=== PATIENT | female | born 1945 ===

== ENCOUNTER 2024-05-25 02:04 | Outpatient (RCR) | payer MEDICARE, SELFPAY ==
[2024-05-25 13:19] LABS: Abs Immature Grans 0.03 10^3/uL (0.0-0.06); Absolute Basophil Count 0.02 10^3/uL (0.0-0.2); Absolute Eosinophil Count 0.28 10^3/uL (0.0-0.7); Absolute Lymphocyte Count 0.82 10^3/uL (1.2-3.4); Absolute Neutrophil Count 5.88 10^3/uL (1.2-6.7); Basophils % 0.3 %; Eosinophils % 3.7 %; HCT 32.4 % (36.0-46.0); HGB 10.8 g/dL (11.2-15.7); Immature Grans % 0.4 %; Lymphocytes % 10.9 %; MCH 30.8 pg (27.0-33.0); MCHC 33.3 % (32.0-36.0); MCV 92 fL (80-95); MPV 10.4 fL (8.0-11.0); Monocytes % 6.6 %; Neutrophils % 78.1 %; Platelet Count 221 10^3/uL (130-400); RBC 3.51 10^6/uL (3.93-5.22); RDW 12.7 % (11.7-14.6); RDW-SD 43.1 fL; WBC 7.53 10^3/uL (4.4-10.8)
[2024-05-25 13:45] LABS: ALT 17 U/L (14-59); AST 19 U/L (15-37); Albumin 3.4 g/dL (3.4-5.0); Alkaline Phosphatase 80 U/L (46-116); Anion Gap 6.4 mmol/L (3-11); BUN 11 mg/dL (7-18); Bilirubin, Total 0.24 mg/dL (0.2-1.0); CO2 25.6 mmol/L (21.0-32.0); CREATININE 1.5 mg/dL (0.55-1.02); Calcium 8.6 mg/dL (8.5-10.1); Chloride 106 mmol/L (98-107); Estimated GFR 35.89 (mL/min/1.73m2); Glucose 106 mg/dL (74-106); Sodium 138 mmol/L (136-145); Total Protein 7.3 g/dL (6.4-8.2)
[2024-05-25] MEDS: Heparin 500 UNITS/5 ML SYRINGE IV (14:11)
[2024-05-25] MEDS: Normal Saline Flush 10 ML SYR IVP (14:11)
== END 2024-06-18 23:59 | disposition home or self-care (01) ==
LOC: INF 02:04
PROVIDERS: PCP Family Medicine; Visit Provider Family Medicine
DX: I11.0 Hypertensive heart disease with heart failure (principal)
CPT/HCPCS: 36591; 80053; 85025; J1642

== ENCOUNTER 2024-06-29 08:16 | Outpatient (CLI) | payer MEDICARE, SELFPAY ==
--- NOTE | 2024-06-29 08:15 | RT.EKG_ITS ---
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
== END 2024-06-29 08:17 | disposition home or self-care (01) ==
LOC: DI.CARD 08:17
PROVIDERS: PCP Family Medicine; Visit Provider Internal Medicine Cardiovascular Disease
DX: Z95.810 Presence of automatic (implantable) cardiac defibrillator (principal); I42.0 Dilated cardiomyopathy
CPT/HCPCS: 93010

== ENCOUNTER → 2024-06-29 11:09 | Outpatient (BNVA) | payer MEDICARE, SELFPAY | PROVIDERS: PCP Family Medicine; Referring Provider Family Medicine; Visit Provider Internal Medicine Cardiovascular Disease | DX: I42.0 Dilated cardiomyopathy (principal); Z95.810 Presence of automatic (implantable) cardiac defibrillator | CPT/HCPCS: 93005; 99203 ==

== ENCOUNTER 2024-08-17 01:34 | Outpatient (RCR) | payer MEDICARE, SELFPAY ==
[2024-08-17] MEDS: Normal Saline Flush 10 ML SYR IVP (12:55)
[2024-08-17] MEDS: Heparin 500 UNITS/5 ML SYRINGE IV (13:00)
== END 2024-09-15 23:59 | disposition home or self-care (01) ==
LOC: INF 01:34
PROVIDERS: PCP Family Medicine; Visit Provider Family Medicine
DX: Z45.2 Encounter for adjustment and management of vascular access device (principal)
CPT/HCPCS: 96523; J1642

== ENCOUNTER 2024-09-07 01:47 | Outpatient (CLI) | payer MEDICARE, SELFPAY ==
--- NOTE | 2024-09-07 12:30 | DI.US_ITS ---
APPROVED REPORT EXAM: Comprehensive 2D, Doppler, and color-flow Echocardiogram Patient Location: Out-Patient Thermocouple Tester: Volodymyr Morales RDCS (AE) Indications: Check LV function and MV regurgitation, dilated DENTAL TECH Other Information Study Quality: Adequate Conclusion Mildly dilated left ventricle. Ejection fraction is 30 to 35%. There is global hypokinesis Normal right ventricular size and function Both atria are enlarged Device lead noted in the right heart Trileaflet aortic valve without stenosis or regurgitation Prior mitral valve repair. Residual moderate eccentric mitral regurgitation Mild tricuspid regurgitation. Estimated right ventricular systolic pressure is 61 mmHg Wall motion Left Ventricle Left ventricle is mildly dilated. Left ventricular systolic function is moderately decreased. There i s normal left ventricular wall thickness. There is global hypokinesis of the left ventricle. There is no ventricular septal defect visualized. LVEF is 30-35%. Right Ventricle The right ventricle is normal size. Device lead is present in the right ventricle. Atria Left atrium is moderately dilated. Right atrium is mildly dilated. The interatrial septum is intact w ith no evidence for an atrial septal defect. Aortic Valve The aortic valve is normal in structure. Aortic valve is trileaflet. There is no aortic valvular sten osis. No aortic regurgitation is present. Mitral Valve Status post mitral valve repair. Moderate mitral regurgitation. Tricuspid Valve The tricuspid valve is normal in structure. There is no tricuspid valve stenosis. Mild tricuspid regu rgitation. Pulmonic Valve The pulmonary valve is normal in structure. There is no pulmonic valvular stenosis. Mild pulmonic reg urgitation. Great Vessels The aortic root is normal in size. The ascending aorta is normal in size. Aortic arch is normal in ca liber. IVC is normal in size and collapses >50% with inspiration. Pericardium There is no pericardial effusion. 2D Dimensions IVSD d PLAX 0.89 cm F: 0.6-1.0 Ao Root d 2.63 cm F: 2.7 - 3.3 LVPW d PLAX 0.85 cm F: 0.6 - 1.0 Ao Asc Diam d 2.84 cm F: 2.3 - 3.1 LVID d PLAX 5.37 cm F: 3.8 - 5.2 LVDs 4.45 cm F: 2.2 - 3.5 LV EF Teichholz 35.2 % FS 16.97 % LV EDV (Teich) 139.2 mL LV ESV (Teich) 90.3 mL Stroke Vol Index (Teich) 29.31 M-Mode TAPSE 2.06 cm (M/F) >1.7 Auto EF LV EDV A4C 108.8 mL LV EDV A2C 106.9 mL LV EDV BP 108.1 mL LV ESV A4C 76.1 mL LV ESV A2C 69.5 mL LV ESV BP 72.7 mL LVEF(%) A4C 30.0 % LVEF(%) A2C 34.9 % LVEF(%) BP 32.7 % LV SV A4C 32.6 ml LV SV A2C 37.3 ml LV SV BP 35.3 ml LV CO A4C 3.1 L/min LV CO A2C 3.4 L/min LV CO BP 3.3 L/min HR A4C 94.95 BPM HR A2C 91.15 BPM LV EDV Index (BP) LA Volume LA Length A4C 5.6 cm LA Length A2C 5.1 cm LA Area A4C s 17.32 cm2 LA Area A2C s 18.40 cm2 LA Vol A4C A-L 45.49 mL LA Vol A2C A-L 56.47 mL LA Vol Biplane A-L 53.2 mL LA Vol/BSA A4C A-L LA Vol/BSA A2C A-L LA Vol/BSA BP A-L 31.8 mL/m2 LA Vol A4C MOD 44.6 mL LA Vol A2C MOD 54.9 mL LA Vol BP MOD 51.4 mL RA Volume RA Area A4C 11.9 cm2 RA ESV A4C (A-L) 24.7mL RA Vol/BSA A4C A-L RA Length A4C 4.9 cm RA ESV A4C (MOD) 23.6mL LV Diastology MV E' medial 0.028 (>0.07 m/s) MV E Vmax 0.32 (0.4-1.3 m/s) MV E/E' MED 11.35 (<14) MV A Vmax 1.55 (0.4-1.3 m/s) MV E' lateral 0.066 (>0.1 m/s) E/A Ratio 0.2 MV E/E' LAT 4.89 (<14) MV E' Average 0.047 m/s MV E/E'(average) 6.84 Aortic Valve AoV Vmax 1.18 m/s LVOT Vmax 0.91 m/s AoV Peak Grad 5.6 mmHg LVOT Peak Grad 3.3 mmHg AoV Area (Vmax) 1.91 cm2 LVOT VTI 0.203 m AoV VTI 0.238 m LVOT Mean Grad 1.5 mmHg AoV Mean Son. 0.80 m/s LVOT SV 50.32 mL AoV Mean Grad 2.9 mmHg LVOT Diam s 1.75 cm AoV Area (VTI) 2.12 cm2 AV Regurg Peak Gr. 5.60 mmHg Velocity Ratio 0.77 Mitral Valve MV DT 100 (160-240 msec) MR Vmax 5.37 m/s MV Vmax TIPS 1.64 m/s MR VTI 1.677 m MV Mean Grad 5.4 (<2mmHg) MR Peak Grad 115.1 mmHg MV VTI 0.354 m MR Mean Grad 74.3 mmHg MR PISA Radius 0.55 cm MR Aliasing Velocity 0.30 m/s Tricuspid Valve RA Pressure 3.00 mmHg TR Vmax 3.82 m/s TV S' 0.11 m/s TR Peak Grad 58.4 mmHg RVSP (TR) 61.4 mmHg
== END 2024-09-07 02:07 ==
LOC: DI 01:47
PROVIDERS: PCP Family Medicine; Visit Provider Internal Medicine Cardiovascular Disease
DX: I42.0 Dilated cardiomyopathy (principal); I08.2 Rheumatic disorders of both aortic and tricuspid valves
CPT/HCPCS: 93306

== ENCOUNTER → 2024-10-12 10:12 | Outpatient (BNVA) | payer MEDICARE, SELFPAY | PROVIDERS: PCP Family Medicine; Referring Provider Family Medicine; Visit Provider Internal Medicine Cardiovascular Disease | DX: Z95.810 Presence of automatic (implantable) cardiac defibrillator (principal); I42.0 Dilated cardiomyopathy | CPT/HCPCS: 99213 ==

== ENCOUNTER 2024-11-16 03:29 | Outpatient (RCR) | payer MEDICARE, SELFPAY ==
[2024-11-16] MEDS: Normal Saline Flush 10 ML SYR IVP (12:58)
== END 2024-12-16 23:59 | disposition home or self-care (01) ==
LOC: INF 03:29
PROVIDERS: PCP Family Medicine; Visit Provider Family Medicine
DX: N18.32 Chronic kidney disease, stage 3b (principal); Z45.2 Encounter for adjustment and management of vascular access device
CPT/HCPCS: 96523

== ENCOUNTER 2024-12-07 19:52 | Outpatient (REF) | payer MEDICARE, SELFPAY ==
[2024-12-07 15:48] LABS: HCT 36.4 % (36.0-46.0); HGB 11.9 g/dL (11.2-15.7); MCH 30.2 pg (27.0-33.0); MCHC 32.7 % (32.0-36.0); MCV 92 fL (80-95); MPV 11.1 fL (8.0-11.0); Platelet Count 309 10^3/uL (130-400); RBC 3.94 10^6/uL (3.93-5.22); RDW 12.2 % (11.7-14.6); RDW-SD 42.0 fL; WBC 8.59 10^3/uL (4.4-10.8)
[2024-12-07 15:55] LABS: ALT 18 U/L (14-59); AST 19 U/L (15-37); Albumin 4.4 g/dL (3.4-5.0); Alkaline Phosphatase 87 U/L (46-116); Anion Gap 12.1 mmol/L (3-11); BUN 23 mg/dL (7-18); Bilirubin, Total 0.4 mg/dL (0.2-1.0); CO2 21.9 mmol/L (21.0-32.0); Calcium 9.7 mg/dL (8.5-10.1); Chloride 105 mmol/L (98-107); Estimated GFR 46.62 (mL/min/1.73m2); Glucose 96 mg/dL (74-106); Potassium 5.0 mmol/L (3.5-5.1); Sodium 139 mmol/L (136-145); Total Protein 8.1 g/dL (6.4-8.2)
== END 2024-12-07 19:53 | disposition home or self-care (01) ==
LOC: NCHCN 19:52
PROVIDERS: PCP Family Medicine; Visit Provider Family Medicine
DX: N18.32 Chronic kidney disease, stage 3b (principal)
CPT/HCPCS: 80053; 85027

== ENCOUNTER → 2025-01-19 10:10 | Outpatient (BNVA) | payer MEDICARE, SELFPAY | PROVIDERS: PCP Family Medicine; Referring Provider Family Medicine; Visit Provider Registered Nurse | DX: I42.0 Dilated cardiomyopathy (principal); Z95.810 Presence of automatic (implantable) cardiac defibrillator; I10 Essential (primary) hypertension; Z45.02 Encounter for adjustment and management of automatic implantable cardiac defibrillator; I27.20 Pulmonary hypertension, unspecified | CPT/HCPCS: 99213; 93280 ==

== ENCOUNTER → 2025-02-15 10:34 | Outpatient (BNVA) | payer MEDICARE, SELFPAY | PROVIDERS: PCP Family Medicine; Visit Provider Internal Medicine Cardiovascular Disease | DX: I42.0 Dilated cardiomyopathy (principal); Z98.890 Other specified postprocedural states; Z95.810 Presence of automatic (implantable) cardiac defibrillator | CPT/HCPCS: 99213 ==

== ENCOUNTER 2025-02-22 03:21 | Outpatient (RCR) | payer MEDICARE, SELFPAY ==
[2025-02-22] MEDS: Normal Saline Flush 10 ML SYR IVP (12:50)
[2025-02-22] MEDS: Heparin 500 UNITS/5 ML SYRINGE IV (12:50)
== END 2025-03-18 23:59 | disposition home or self-care (01) ==
LOC: INF 03:21
PROVIDERS: PCP Family Medicine; Visit Provider Family Medicine
DX: Z45.2 Encounter for adjustment and management of vascular access device (principal)
CPT/HCPCS: 96523; J1642

== ENCOUNTER 2025-04-07 13:46 | Outpatient (REF) | payer MEDICARE, SELFPAY ==
[2025-04-07 15:31] LABS: HCT 33.3 % (36.0-46.0); HGB 11.2 g/dL (11.2-15.7); MCH 31.1 pg (27.0-33.0); MCHC 33.6 % (32.0-36.0); MCV 93 fL (80-95); MPV 11.3 fL (8.0-11.0); Platelet Count 243 10^3/uL (130-400); RBC 3.60 10^6/uL (3.93-5.22); RDW 12.4 % (11.7-14.6); RDW-SD 42.5 fL; WBC 7.54 10^3/uL (4.4-10.8)
[2025-04-07 15:59] LABS: TSH (W/Ref FT4) 3.45 uIU/mL (0.55-4.78)
[2025-04-07 16:00] LABS: Magnesium 1.8 mg/dL (1.6-2.6)
[2025-04-07 16:04] LABS: ALT 11 U/L (10-49); AST 24 U/L (<34); Albumin 4.4 g/dL (3.4-5.0); Alkaline Phosphatase 68 U/L (46-116); Anion Gap 12 mmol/L (3-11); BUN 24 mg/dL (9-23); Bilirubin, Total 0.60 mg/dL (0.2-1.2); CO2 21.0 mmol/L (20.0-31.0); Calcium 9.7 mg/dL (8.3-10.6); Chloride 109 mmol/L (98-107); Creatine Kinase 75 U/L (34-145); Glucose 95 mg/dL (74-106); Potassium 5.0 mmol/L (3.5-5.1); Sodium 142 mmol/L (136-145); Total Protein 7.2 g/dL (5.7-8.2)
== END 2025-04-07 13:47 | disposition home or self-care (01) ==
LOC: NCHCN 13:46
PROVIDERS: PCP Family Medicine; Visit Provider Family Medicine
DX: R25.2 Cramp and spasm (principal); R68.89 Other general symptoms and signs
CPT/HCPCS: 80053; 82550; 85027; 83735; 84443